=== PATIENT | female | born 1980 | race Caucasian/White ===

== ENCOUNTER → 2020-07-05 | Outpatient (CLI) | payer BC, OTHER ==
[~2020-07-05] MED LIST: ACHD5005 PO; ASPI-586 PO; DOCU100C37 PO; FERR325T18 PO; IBUP-1773 PO; IRON1TAB95 PO; PREN1TAB39 PO; SIME80TA16 PO
--- NOTE | 2020-07-05 13:06 | Diagnostic Imaging Report ---
INDICATION: Pain status post injury. COMPARISON: None. FINDINGS: Multiple radiographic views of the left fourth digit were obtained and show acute comminuted tuft fracture of the distal phalanx. There is minimal displacement of fracture fragments. No intra-articular extension is identified. No unexpected radiopaque foreign bodies are seen. IMPRESSION: 1. Acute tuft fracture of the fourth distal phalanx of the left hand as described above. Dictated by: Dictated on workstation # [id number]
== END ==
LOC: RAD 10:36
PROVIDERS: ATTEND Family Medicine
DX: S62.635A Displaced fracture of distal phalanx of left ring finger, initial encounter for closed fracture (principal); X58.XXXA Exposure to other specified factors, initial encounter
CPT/HCPCS: 73140

== ENCOUNTER → 2021-05-30 | Outpatient (CLI) | payer OTHER ==
--- NOTE | 2021-05-30 10:08 | Diagnostic Imaging Report ---
Indication: Screening. The current study was also evaluated with a Computer Aided Detection (CAD) system. 3-D Tomographic imaging was also performed. This is a baseline exam. There are no prior examinations. FINDINGS: The fibroglandular tissue is heterogeneously dense bilaterally which can limit the sensitivity for detection of small masses. There is however no dominant mass, spiculated lesions or suspicious calcination identified. Skin, nipples and axial are unremarkable. IMPRESSION: Category 1 negative ACR BI-RADS Category 1: Negative. Result letter will be mailed to the patient. Note: At least 10% of breast cancer is not imaged by mammography. Dictated by: Dictated on workstation # [id number]
== END ==
LOC: RAD 08:28
PROVIDERS: ATTEND Obstetrics & Gynecology
DX: Z12.31 Encounter for screening mammogram for malignant neoplasm of breast (principal)
CPT/HCPCS: 77063; 77067